=== PATIENT | male | born 1945 | race Caucasian/White ===

== ENCOUNTER 2023-12-07 08:13 | Day surgery (SDC) | payer MEDICARE, OTHER ==
[~2023-12-07 08:13] MED LIST: Acetaminophen 325 MG Tab PO PRN; Acetaminophen/Codeine 300-30 MG Tab PO PRN; Cataract Ophth Solution EYELF ONE
[2023-12-07] MEDS ORDERED: Sodium Chloride 0.9% 10 ML Syringe IV ONE (08:14)
[2023-12-07] MEDS ORDERED: Midazolam 1 MG/ML 2 ML SDV IV ONE (08:14)
[2023-12-07] MEDS ORDERED: Dexamethasone 4 MG/ML SDV IV ONE (08:14)
[2023-12-07] MEDS: Proparacaine 0.5% Ophth Soln 15 ML Bottle EYELF ONE ×2 (08:25→08:56)
[2023-12-07] MEDS: Moxifloxacin 0.5% Ophth Soln 3 ML Bottle EYELF ONE (08:26)
[2023-12-07] MEDS: Tropicamide 1% Ophth Soln 15 ML Bottle EYELF ONE (08:29)
[2023-12-07] MEDS: Povidone-Iodine 5% Sterile Ophth Soln 30 ML Bottle EYELF ONE ×2 (08:29→08:56)
[2023-12-07] MEDS: Phenylephrine 10% Ophth Soln 5 ML Bot EYELF ONE (08:30)
[2023-12-07] MEDS: Timolol Maleate 0.5% Ophth Soln 5 ML Bottle EYELF ONE (08:31)
[2023-12-07] MEDS: Sodium Chloride 0.9% 10 ML Syringe FLUSH PRN (08:32)
[2023-12-07] MEDS: Lidocaine 1% 30 ML SDV ONE (08:56)
[2023-12-07] MEDS: Vancomycin 500 MG SDV EYELF ONE (08:56)
[2023-12-07] MEDS: Chondroitin Sulfate/Hyaluronate Sodium Ophth Inj 0.75 ML Syringe EYELF ONE (08:56)
[2023-12-07] MEDS: Dexamethasone/Neomycin/Polymyxin B Ophth Oint 3.5 GM Tube EYELF ONE (08:57)
[2023-12-07] MEDS: Diclofenac Sodium 0.1% Ophth Soln 5 ML Bottle EYELF ONE (08:57)
[2023-12-07] MEDS: Apraclonidine 0.5% Ophth Soln 5 ML Bot EYELF ONE (08:57)
[2023-12-07] MEDS: Balanced Salt Solution Ophth Irrig 500 ML Bottle IOCULAR ONE (08:57)
[2023-12-07] MEDS ORDERED: Ondansetron 4 MG/2 ML SDV IVPUSH PRN (09:34)
== END 2023-12-07 09:45 | disposition home or self-care (01) ==
LOC: DL.SDS 08:13
PROVIDERS: ATTEND Ophthalmology
DX: H25.812 Combined forms of age-related cataract, left eye (principal); E78.5 Hyperlipidemia, unspecified; I25.119 Atherosclerotic heart disease of native coronary artery with unspecified angina pectoris; H26.9 Unspecified cataract; Z87.891 Personal history of nicotine dependence; Z79.899 Other long term (current) drug therapy
CPT/HCPCS: 00142; 99100; A9270-GY; J1100; J2250; J3370; J3490; V2632

== ENCOUNTER 2023-12-21 08:00 | Day surgery (SDC) | payer MEDICARE, OTHER ==
[~2023-12-21 08:00] MED LIST changes: -Cataract Ophth Solution EYELF ONE; +Ondansetron 4 MG/2 ML SDV IVPUSH PRN; +Sodium Chloride 0.9% 10 ML Syringe FLUSH PRN
[2023-12-21] MEDS: Proparacaine 0.5% Ophth Soln 15 ML Bottle EYERT ONE ×2 (08:12→08:55)
[2023-12-21] MEDS: Moxifloxacin 0.5% Ophth Soln 3 ML Bottle EYERT ONE (08:15)
[2023-12-21] MEDS: Povidone-Iodine 5% Sterile Ophth Soln 30 ML Bottle EYERT ONE ×2 (08:16→08:55)
[2023-12-21] MEDS: Tropicamide 1% Ophth Soln 15 ML Bottle EYERT ONE (08:17)
[2023-12-21] MEDS: Phenylephrine 10% Ophth Soln 5 ML Bot EYERT ONE (08:17)
[2023-12-21] MEDS: Timolol Maleate 0.5% Ophth Soln 5 ML Bottle EYERT ONE (08:18)
[2023-12-21] MEDS: Cataract Ophth Solution EYERT ONE (08:19)
[2023-12-21] MEDS: Lidocaine 1% 30 ML SDV INJECT ONE (08:56)
[2023-12-21] MEDS: Diclofenac Sodium 0.1% Ophth Soln 5 ML Bottle EYERT ONE (08:56)
[2023-12-21] MEDS: Apraclonidine 0.5% Ophth Soln 5 ML Bot EYERT ONE (08:56)
[2023-12-21] MEDS: Dexamethasone/Neomycin/Polymyxin B Ophth Oint 3.5 GM Tube EYERT ONE (08:56)
[2023-12-21] MEDS: Vancomycin 500 MG SDV EYERT ONE (08:57)
== END 2023-12-21 09:45 | disposition home or self-care (01) ==
LOC: DL.SDS 08:00
PROVIDERS: ATTEND Ophthalmology
DX: H25.811 Combined forms of age-related cataract, right eye (principal); I25.10 Atherosclerotic heart disease of native coronary artery without angina pectoris; E78.5 Hyperlipidemia, unspecified; Z79.899 Other long term (current) drug therapy
CPT/HCPCS: A9270-GY; J3370; J3490; V2632